=== PATIENT | male | born 1980 | race Caucasian/White ===

== ENCOUNTER 2024-12-09 12:38 | Outpatient (OUT) | payer BC, SELFPAY ==
--- NOTE | 2024-12-09 | US_ITS ---
The [address] [address] Patient Name: EILEEN VILLARREAL MRN: [id number] date: 1980 Sex: M Assigned Patient Location: [place] Current Patient Location: [place] Accession/Order Number: [id number] Exam Date: 12/09/2024 13:00 Report Date: 12/09/2024 16:51 At the request of: PAULINE LANGE MD Procedure: US scrotum Scrotal ultrasound INDICATION: Epididymitis, left scrotal pain for 3 weeks COMPARISON: None FINDINGS: Right testicle 5.0 x 2.8 x 2.9 cm and homogeneous in echotexture. Normal color Doppler flow. Epididymis unremarkable. Left testicle 4.7 x 2.9 x 2.5 cm in size with normal color Doppler vascular flow. Unremarkable epididymis Homogeneous echotexture. Incidental varicocele on the left corresponding to the site of discomfort. US/US scrotum IMPRESSION: Negative for testicular torsion or suspicious testicular mass lesion. Left-sided varicocele corresponds to site of discomfort/pain Impression dictated by: Manish Gan M.D. 12/09/2024 4:51 PM Dictation Location: [place] [address] Electronically authenticated by: [id number] Y Date: 12/09/2024 16:51
--- OUTSIDE RECORDS SUMMARY | 2024-12-09 12:44 | XMS_ITS | Clinical Summary ---
Author Organization [facility] tem Address [id number] [address] [place] [address] Care Team Providers Care Route Sales Delivery Drivers Supervisor Name Role Phone Parish Torres MD Primary Care Provider [phone] Allergies No known active allergies Medications No known medications Social History Tobacco UseTypesPacks/DayYears UsedDateSmoking Tobacco: NeverSmokeless Tobacco: NeverAlcohol UseStandard Drinks/CyebRwlhyuplYds49 (1 standard drink = 0.6 oz pure alcohol)ChildcareAnswerDate GaphgmthHhykykwxiVtejuai34/13/2019Employment AnswerDate WmxvntzrOfzywroqqhBapmoob47/13/2019Purpose - LifeAnswerDate Recorded Purpose and direction in ozwxUgvklon63/11/2021ex and Gender InformationValue Date RecordedSex Assigned at BirthNot on fileLegal HvuKums9209/12/2017 8:28 AM EDT Gender IdentityNot on fileSexual OrientationNot on file Last Filed Vital Signs Vital SignReadingTime TakenCommentsBlood Aewiiqmz410/7807 10:24 AM EDT Xmkyf864409/12/2017 10:29 AM PWMWivmbynyeag85.4 ??C (97.5 ??F)09/12/2017 8:31 AM EDTRespiratory Yffi8584 10:29 AM EDTOxygen Qihezezesk89%09/12/2017 10:29 AM EDTInhaled Oxygen Concentration--Ixcjxe48.9 kg (185 lb)09/12/2017 8:31 AM EDT Ilxdym583.9 cm (6')09/12/2017 8:31 AM EDTBody Mass Index25.0909/12/2017 8:31 AM EDT Plan of Treatment Not on file Medical Devices Not on file Insurance Care Teams Team MemberRelationshipSpecialtyStart DateEnd Parish Torres MD [facility]
--- OUTSIDE RECORDS SUMMARY | 2024-12-09 12:44 | XMS_ITS | Clinical Summary ---
Author Organization [facility] Address [address] [place] [address] Care Team Providers Care Sound System Installer Name Role Phone Parish Torres MD Primary Care Provider [phone] Allergies No known active allergies Medications MedicationSigDispense QuantityRefillsLast FilledStart DateEnd DateStatus methylPREDNISolone (Medrol Dospak) 4 MG tablets Indications:Prepatellar bursitis of right kneeFollow schedule on package instructions 21 tablet 06/06/2023ctive Active Problems No known active problems Social History Tobacco UseTypesPacks/DayYears UsedDateSmoking Tobacco: NeverSmokeless Tobacco: Never Tobacco Cessation:Counseling Given: Not Answered Alcohol UseStandard Drinks/WeekCommentsYes0 (1 standard drink = 0.6 oz pure alcohol)Sex and Gender InformationValueDate RecordedSex Assigned at BirthNot on fileLegal KmmObfv6305/01/2022 6:53 PM EDTGender IdentityNot on fileSexual OrientationNot on file Last Filed Vital Signs Vital SignReadingTime TakenCommentsBlood Pressure--Pulse--Temperature-- Respiratory Rate--Oxygen Saturation--Inhaled Oxygen Concentration--Elrnhm25.2 kg (190 lb)05/14/2023 8:34 AM QGNFpdtje394.9 cm (6')05/14/2023 8:34 AM EDTBody Mass Index25.77005/14/2023 8:34 AM EDT Plan of Treatment Not on file Insurance * Guarantor: Hansel Sanchez TypeRelation to PatientDate of BirthPhone Billing AddressPersonal/XmuspaVizz[birth year][address] [place] [address] Care Teams Team MemberRelationshipSpecialtyStart DateEnd Date Parish Torres MD PCP - GeneralFamily Medicine05/14/23
== END 2024-12-09 12:39 | disposition home or self-care (01) ==
LOC: US 12:41
PROVIDERS: PCP Family Medicine; Visit Provider Urology
DX: N45.1 Epididymitis (principal); I86.1 Scrotal varices
CPT/HCPCS: 76870